=== PATIENT | female | born 2000 | race African-American/Black ===

== ENCOUNTER 2022-01-26 12:25 | Emergency (ER) | payer BC ==
[2022-01-26 13:09] VITALS: BP 132/91; PULSE 97; RESP 18; TEMP 98.7; BMI 25.0
== END 2022-01-26 15:25 | disposition home or self-care (01) ==
LOC: JER 12:25
DX: F41.9 Anxiety disorder, unspecified (principal)
CPT/HCPCS: 93005; 93010; 99283-25